=== PATIENT | male | born 1970 | race Caucasian/White ===

== ENCOUNTER 2018-04-18 22:23 | Emergency (ER) | payer OTHER ==
--- NOTE | 2018-04-18 22:39 | EDPHY ---
H & P Stated Complaint: anxious chest pressure Time Seen by Provider: 04/18/18 22:39 HPI/ROS: HPI CHIEF COMPLAINT: Anxiety, increased stress, abdominal cramps, nausea. HISTORY OF PRESENT ILLNESS: 47-year-old male, presents emergency room after he states he has had increased stress recently. He has been having marital relationship problems and has had increased stress. Tried to go to sleep tonight but had racing thoughts and was unable to get to sleep. He had 3 beers , he took an Ambien, took his Seroquel was very restless. He states he tossed and turned and had racing thoughts and could not get to sleep. This caused him to feel short of breath and anxious. He states he had some numbness and tingling in his toes additionally he reports cramping in his abdomen and chest. Describes as cramping, with associated nausea thought he was going to vomit. Due to all the symptoms decided come the emergency room. He states currently he feels anxious. He denies any chest pain. Past Medical History: Asthma, insomnia Past Surgical History: Hip replacement, knee replacement Social History: Denies daily use of drugs alcohol tobacco. Family History: Denies any significant cardiovascular risk factors and his family. ROS REVIEW OF SYSTEMS: A comprehensive 10 point review of systems is otherwise negative aside from elements mentioned in the history of present illness. Exam Constitutional nontoxic appearing in no acute distress however somewhat anxious , triage nursing summary reviewed, vital signs reviewed, awake/alert. Eyes normal conjunctivae and sclera, EOMI, PERRLA. HENT normal inspection, atraumatic, moist mucus membranes, no epistaxis, neck supple/ no meningismus, no raccoon eyes. Respiratory clear to auscultation bilaterally, normal breath sounds, no respiratory distress, no wheezing. Cardiovascular rate normal, regular rhythm, no murmur, no edema, distal pulses normal. Gastrointestinal soft, non-tender, no rebound, no guarding, normal bowel sounds, no distension, no pulsatile mass. Genitourinary no CVA tenderness. Musculoskeletal no midline vertebral tenderness, full range of motion, no calf swelling, no tenderness of extremities, no meningismus, good pulses, neurovascularly intact. Skin pink, warm, & dry, no rash, skin atraumatic. Neurologic awake, alert and oriented x 3, AAOx3, moves all 4 extremities equally, motor intact, sensory intact, CN II-XII intact, normal cerebellar, normal vision, normal speech. Psychiatric normal mood/affect. Heme/Lymph/Immune no lymphadenopathy. Differential diagnosis includes but is not limited to: ACS, atypical chest pain , pneumothorax, pneumonia, pulmonary embolism, aortic dissection, congestive heart failure, tumor, musculoskeletal pain, esophageal pain, GERD, peptic ulcer disease, pancreatitis Medical Decision Making: Plan for this patient IV establishment with full cardiac technologist obtain EKG, troponin, electrolytes, IV fluid bolus 1 L normal saline, IV Ativan 1 mg, and re-evaluate. Rule out acute coronary syndrome. Re-evaluation: EKG interpretation by me on record in [facility] system. Impression time of EKG 2245, this is sinus rhythm rate of 95 Q-waves noted 3 and AVF similar previous EKG dated 10/24/2011. I do not appreciate ST elevation. No significant ST depression. Subtle T-wave inversion V2. V1. 2343: Serum alcohol level 286 EKG interpretation by me on record in [facility] system. Impression time of EKG 1:38 a.m., sinus rhythm without any acute signs of ischemia. No ST elevation or ST depression or significant T-wave abnormalities. Similar to previous EKG. 0621: Patient has been sleeping throughout the ER course. He did have an episode of vomiting received antiemetics. Otherwise been resting comfortably no acute distress. He had a repeat troponin 3rd 1 that is been 0. He has not had any repeat chest pain. He also had a 3rd EKG that shows time of EKG 5:54 a.m., sinus rhythm rate of 81 left anterior fascicular block present. Similar to previous EKGs. No ST elevation no significant ST depression no significant T-wave abnormalities. Was noted that his alcohol level was elevated to 286. This may be contributing to his nausea vomiting. Also this could be contributing to his anxiety. I highly recommend he refrain from drinking alcohol 0627AM: Patient eager for discharge. Had a long discussion with him about his alcohol intake elevated alcohol level here in emergency room as well as elevated liver enzymes. Recommend he refrain from drinking alcohol. Additionally he should return emergency room if develops vomiting, chest pain, shortness of breath or worsening symptoms. EKGs have been stable throughout the ER course. He has been sleeping throughout the night. His troponins x3 are negative. Return precautions discussed he understands. He p.o. Challenge well. Recommend no spicy fatty greasy foods recommend cutting back on alcohol, Zofran for nausea and Zantac for upset stomach. Source: Patient - Personal History Current Tetanus/Diphtheria Vaccine: Yes Current Tetanus Diphtheria and Acellular Pertussis (TDAP): Yes Tetanus Vaccine Date: within 10 years - Medical/Surgical History Hx Asthma: Yes Hx Chronic Respiratory Disease: No Hx Diabetes: No Hx Cardiac Disease: No Hx Renal Disease: No Hx Cirrhosis: No Hx Alcoholism: No Hx HIV/AIDS: No Hx Splenectomy or Spleen Trauma: No Other PMH: ASTHMA AND INSOMNIA. TOTAL R HIP REPLACEMENT AND BILATERAL KNEE SURG FOR MENISCUS TEAR - Social History Smoking Status: Never smoked Constitutional: Initial Vital Signs Temperature (C) 36.7 C 04/18/18 22:28 Heart Rate 95 04/18/18 22:28 Respiratory Rate 18 04/18/18 22:28 Blood Pressure 127/86 H 04/18/18 22:28 O2 Sat (%) 92 04/18/18 22:28 O2 Delivery Mode Room Air Allergies/Adverse Reactions: venom-honey bee [bee venom (honey bee)] Allergy (Verified 09/24/16 08:38) Home Medications: Medication Instructions Recorded Zolpidem Tartrate [Ambien] 0 mg PO HSPRN 10/23/11 Albuterol Hfa Anes Only [Proair 04/15/15 Hfa Icu (RX)] Seroquel 04/18/18 Ondansetron HCl [Zofran] 4 mg PO Q4-6PRN PRN #10 tablet 04/19/18 Ranitidine HCl [Zantac] 150 mg PO DAILY #14 tablet 04/19/18 Medical Decision Making - Diagnostics Imaging Results: Imaging Impressions Chest X-Ray 04/18/18 22:47 Impression: Normal chest x-ray. - Data Points Laboratory Results: Laboratory Results 04/19/18 02:00 04/18/18 22:40 04/19/18 04/19/18 04/19/18 05:51 02:00 01:41 WBC 7.76 10^3/uL 10^3/uL (3.80-9.50) RBC 5.23 10^6/uL 10^6/uL (4.40-6.38) Hgb 18.7 g/dL H g/dL (13.7-17.5) Hct 52.1 % H % (40.0-51.0) MCV 99.6 fL fL (81.5-99.8) MCH 35.8 pg H pg (27.9-34.1) MCHC 35.9 g/dL g/dL (32.4-36.7) RDW 12.5 % % (11.5-15.2) Plt Count 185 10^3/uL 10^3/uL (150-400) MPV 11.0 fL fL (8.7-11.7) Neut % (Auto) 47.4 % % (39.3-74.2) Lymph % (Auto) 40.1 % % (15.0-45.0) [place] % (Auto) 6.6 % % (4.5-13.0) Eos % (Auto) 4.6 % % (0.6-7.6) Baso % (Auto) 1.2 % % (0.3-1.7) Nucleat RBC Rel Count 0.0 % % (0.0-0.2) Absolute Neuts (auto) 3.68 10^3/uL 10^3/uL (1.70-6.50) Absolute Lymphs (auto) 3.11 10^3/uL H 10^3/uL (1.00-3.00) Absolute Monos (auto) 0.51 10^3/uL 10^3/uL (0.30-0.80) Absolute Eos (auto) 0.36 10^3/uL 10^3/uL (0.03-0.40) Absolute Basos (auto) 0.09 10^3/uL 10^3/uL (0.02-0.10) Absolute Nucleated RBC 0.00 10^3/uL 10^3/uL (0-0.01) Immature Gran % 0.1 % % (0.0-1.1) Immature Gran # 0.01 10^3/uL 10^3/uL (0.00-0.10) PT INR APTT D-Dimer Sodium Potassium Chloride Carbon Dioxide Anion Gap BUN Creatinine Estimated GFR Glucose Calcium Magnesium Total Bilirubin Conjugated Bilirubin Unconjugated Bilirubin AST ALT Alkaline Phosphatase POC Troponin I 0.00 ng/mL ng/mL 0.00 ng/mL ng/mL (0.00-0.08) (0.00-0.08) NT-Pro-B Natriuret Pep Total Protein Albumin Lipase Ethyl Alcohol 04/18/18 04/18/18 04/18/18 22:42 22:40 22:40 WBC RBC Hgb Hct MCV MCH MCHC RDW Plt Count MPV Neut % (Auto) Lymph % (Auto) [place] % (Auto) Eos % (Auto) Baso % (Auto) Nucleat RBC Rel Count Absolute Neuts (auto) Absolute Lymphs (auto) Absolute Monos (auto) Absolute Eos (auto) Absolute Basos (auto) Absolute Nucleated RBC Immature Gran % Immature Gran # PT INR APTT D-Dimer Sodium 145 mEq/L mEq/L (135-145) Potassium 4.0 mEq/L mEq/L (3.3-5.0) Chloride 108 mEq/L mEq/L (97-110) Carbon Dioxide 22 mEq/l mEq/l (22-31) Anion Gap 15 mEq/L mEq/L (8-16) BUN 4 mg/dL L mg/dL (7-23) Creatinine 0.8 mg/dL mg/dL (0.7-1.3) Estimated GFR > 60 Glucose 152 mg/dL H mg/dL (70-100) Calcium 9.7 mg/dL mg/dL (8.5-10.4) Magnesium 2.0 mg/dL mg/dL (1.6-2.3) Total Bilirubin 0.7 mg/dL mg/dL (0.1-1.4) Conjugated Bilirubin 0.4 mg/dL mg/dL (0.0-0.5) Unconjugated Bilirubin 0.3 mg/dL mg/dL (0.0-1.1) AST 80 IU/L H IU/L (17-59) ALT 83 IU/L H IU/L (21-72) Alkaline Phosphatase 72 IU/L IU/L (38-126) POC Troponin I 0.00 ng/mL ng/mL (0.00-0.08) NT-Pro-B Natriuret Pep < 11 pg/mL pg/mL (0-125) Total Protein 8.1 g/dL g/dL (6.3-8.2) Albumin 4.0 g/dL g/dL (3.5-5.0) Lipase 133 IU/L IU/L (23-300) Ethyl Alcohol 286 mg/dL H mg/dL (0-10) 04/18/18 04/18/18 22:40 22:40 WBC 8.00 10^3/uL 10^3/uL (3.80-9.50) RBC 5.43 10^6/uL 10^6/uL (4.40-6.38) Hgb 19.6 g/dL H g/dL (13.7-17.5) Hct 53.6 % H % (40.0-51.0) MCV 98.7 fL fL (81.5-99.8) MCH 36.1 pg H pg (27.9-34.1) MCHC 36.6 g/dL g/dL (32.4-36.7) RDW 12.5 % % (11.5-15.2) Plt Count 195 10^3/uL 10^3/uL (150-400) MPV 10.9 fL fL (8.7-11.7) Neut % (Auto) 43.9 % % (39.3-74.2) Lymph % (Auto) 41.6 % % (15.0-45.0) [place] % (Auto) 6.8 % % (4.5-13.0) Eos % (Auto) 6.1 % % (0.6-7.6) Baso % (Auto) 1.3 % % (0.3-1.7) Nucleat RBC Rel Count 0.3 % H % (0.0-0.2) Absolute Neuts (auto) 3.52 10^3/uL 10^3/uL (1.70-6.50) Absolute Lymphs (auto) 3.33 10^3/uL H 10^3/uL (1.00-3.00) Absolute Monos (auto) 0.54 10^3/uL 10^3/uL (0.30-0.80) Absolute Eos (auto) 0.49 10^3/uL H 10^3/uL (0.03-0.40) Absolute Basos (auto) 0.10 10^3/uL 10^3/uL (0.02-0.10) Absolute Nucleated RBC 0.02 10^3/uL H 10^3/uL (0-0.01) Immature Gran % 0.3 % % (0.0-1.1) Immature Gran # 0.02 10^3/uL 10^3/uL (0.00-0.10) PT 13.6 SEC SEC (12.0-15.0) INR 1.02 (0.83-1.16) APTT 31.1 SEC SEC (23.0-38.0) D-Dimer 0.34 ug/mLFEU ug/mLFEU (0.00-0.50) Sodium Potassium Chloride Carbon Dioxide Anion Gap BUN Creatinine Estimated GFR Glucose Calcium Magnesium Total Bilirubin Conjugated Bilirubin Unconjugated Bilirubin AST ALT Alkaline Phosphatase POC Troponin I NT-Pro-B Natriuret Pep Total Protein Albumin Lipase Ethyl Alcohol Medications Given: Discontinued Medications Diazepam (Valium) 2.5 mg IVP EDNOW ONE Stop: 04/19/18 01:44 Last Admin: 04/19/18 01:49 Dose: 2.5 mg Famotidine (Pepcid) 20 mg IVP EDNOW ONE Stop: 04/19/18 01:44 Last Admin: 04/19/18 01:49 Dose: 20 mg Sodium Chloride (Ns) 1,000 mls @ 0 mls/hr IV EDNOW ONE; Wide Open PRN Reason: Protocol Stop: 04/18/18 22:48 Last Admin: 04/18/18 22:53 Dose: 1,000 mls Sodium Chloride (Ns) 1,000 mls @ 0 mls/hr IV ONCE ONE PRN Reason: Wide Open Stop: 04/19/18 01:44 Last Admin: 04/19/18 01:49 Dose: 1,000 mls Lorazepam (Ativan Injection) 1 mg IVP EDNOW ONE Stop: 04/18/18 22:48 Last Admin: 04/18/18 22:54 Dose: 1 mg Ondansetron HCl (Zofran) 4 mg IVP EDNOW ONE Stop: 04/19/18 00:52 Last Admin: 04/19/18 00:54 Dose: 4 mg Point of Care Test Results: Chemistry 04/19/18 04/19/18 04/18/18 05:51 01:41 22:42 POC Troponin I 0.00 ng/mL ng/mL 0.00 ng/mL ng/mL 0.00 ng/mL ng/mL (0.00-0.08) (0.00-0.08) (0.00-0.08) Departure - Departure Disposition: Home, Routine, Self-Care Clinical Impression: Anxiety Alcohol intoxication Qualifiers: Complication of substance-induced condition: uncomplicated Qualified Code(s): F10.920 - Alcohol use, unspecified with intoxication, uncomplicated Condition: Good Instructions: Sleep Apnea (DC), Alcohol Intoxication (ED), Anxiety (ED) Referrals: NEMO CHAMBERS [Primary Care Provider] - As per Instructions Prescriptions: Ondansetron HCl [Zofran] 4 mg PO Q4-6PRN PRN #10 tablet PRN Reason: Nausea/Vomiting, Use 1st Ranitidine HCl [Zantac] 150 mg PO DAILY #14 tablet
[2018-04-18] MEDS ORDERED: LORazepam 2 MG/ML INJ IVP ONE (22:47)
[2018-04-18] MEDS ORDERED: NS 1,000 ML IV ONE (22:47)
--- NOTE | 2018-04-18 22:47 | CPEKG ---
Heart Rate: 95 RR Interval: 632 P-R Interval: 160 QRSD Interval: 98 QT Interval: 356 QTC Interval: 448 P [place]: 65 QRS [place]: 265 T Wave [place]: 54 EKG Severity - ABNORMAL ECG - EKG Impression: SINUS RHYTHM EKG Impression: PROBABLE RIGHT VENTRICULAR HYPERTROPHY EKG Impression: PROBABLE INFERIOR INFARCT, OLD Electronically Signed By: Heath Maurer 19-Apr-2018 06:39:41
[2018-04-18 22:57] LABS: PLATELET COUNT 195 10^3/uL (150-400)
[2018-04-18 23:05] LABS: INR 1.02 (0.83-1.16); PROTIME(PATIENT) 13.6 SEC (12.0-15.0)
[2018-04-19] MEDS ORDERED: ONDANSETRON 4 MG/2 ML VIAL IVP ONE (00:51)
[2018-04-19] MEDS ORDERED: ONDANSETRON 4 MG/2 ML VIAL ONE ×2 (00:52→06:36)
--- NOTE | 2018-04-19 01:40 | CPEKG ---
Heart Rate: 81 RR Interval: 741 P-R Interval: 188 QRSD Interval: 104 QT Interval: 384 QTC Interval: 446 P [place]: 50 QRS [place]: 267 T Wave [place]: 46 EKG Severity - ABNORMAL ECG - EKG Impression: SINUS RHYTHM EKG Impression: LAD, CONSIDER LEFT ANTERIOR FASCICULAR BLOCK EKG Impression: PROBABLE RIGHT VENTRICULAR HYPERTROPHY Electronically Signed By: Heath Maurer 19-Apr-2018 06:39:41
[2018-04-19] MEDS ORDERED: DIAZEPAM 5 MG/ML 1 ML SYR IVP ONE (01:43)
[2018-04-19] MEDS ORDERED: NS 1,000 ML IV ONE (01:43)
[2018-04-19] MEDS ORDERED: FAMOTIDINE 20 MG/2 ML SDV IVP ONE (01:43)
[2018-04-19 02:09] LABS: PLATELET COUNT 185 10^3/uL (150-400)
--- NOTE | 2018-04-19 05:55 | CPEKG ---
Heart Rate: 81 RR Interval: 741 P-R Interval: 184 QRSD Interval: 96 QT Interval: 384 QTC Interval: 446 P [place]: 60 QRS [place]: -83 T Wave [place]: 36 EKG Severity - ABNORMAL ECG - EKG Impression: SINUS RHYTHM EKG Impression: LEFT ANTERIOR FASCICULAR BLOCK Electronically Signed By: Heath Maurer 19-Apr-2018 06:39:41
[2018-04-19 06:32] VITALS: BP 114/79
== END 2018-04-19 06:42 | disposition home or self-care (01) ==
DX: F41.9 Anxiety disorder, unspecified (principal); F10.920 Alcohol use, unspecified with intoxication, uncomplicated; E86.9 Volume depletion, unspecified; J45.909 Unspecified asthma, uncomplicated; R10.9 Unspecified abdominal pain
CPT/HCPCS: 84484-PO; 96374; G0480; J2060; J2405; J3360